=== PATIENT | male | born 1965 | race Caucasian/White ===

== ENCOUNTER → 2016-07-04 | Outpatient (CLI) | payer BC | END | disposition home or self-care (01) | LOC: LAB.O 06-20 12:42 | PROVIDERS: ATTEND Nurse Practitioner Family | DX: I10 Essential (primary) hypertension (principal); B19.9 Unspecified viral hepatitis without hepatic coma; E03.9 Hypothyroidism, unspecified ==

== ENCOUNTER 2018-11-05 22:40 | Emergency (ER) | payer SELFPAY ==
[2018-11-05] MEDS ORDERED: cloNIDine HCL 0.1 MG TAB ONE (23:01)
[2018-11-05] MEDS: cloNIDine HCL 0.1 MG TAB PO ONE (23:02)
[2018-11-05] MEDS: ONDANSETRON INJ 4 MG/2 ML VIAL IV ONE (23:10)
[2018-11-05] MEDS: SODIUM CHLORIDE 0.9% (FLUSH) 10 ML SYG IV PRN (23:14)
--- NOTE | 2018-11-05 23:50 | CT ---
CT HEAD WITHOUT CONTRAST 11/05/2018 CLINICAL HISTORY: Headache COMPARISON: None TECHNIQUE: Axial [address] imaging of the brain. Reformatted coronal and sagittal images obtained. This examination was performed according to our departmental dose optimization program, which includes automated exposure control, adjustment of the mA and/or kV according to patient size and/or use of iterative reconstruction technique. FINDINGS: Asymmetric ventricle size is within normal variability. There is no midline shift. There is no intraparenchymal or extra-axial hemorrhage. There is a 7 mm cystic focus within the superior left frontoparietal periventricular white matter due to remote lacunar infarction. There is no large territorial acute infarct. No hyperdense vessel. No edema seen. Rodriguez-white matter differentiation is maintained. Normal cerebellum and vermis. Fourth ventricle is midline. Prepontine cisterns are not effaced. Normal sella contents. The paranasal sinuses are clear. Mastoid air cells are well aerated. Intraorbital contents appear normal. Intact skull base and calvarium. Normal scalp soft tissues. IMPRESSION: 1. No intracranial acute finding. 2. Remote lacunar infarct within the left periventricular frontal parietal white matter. Electronically signed by: Landy Read DO 11/05/2018 11:49 PM CDT
--- NOTE | 2018-11-06 00:02 | ED.PDOC ---
History of Present Illness - General Chief Complaint: Headache Stated Complaint: headache, nosebleed, N/V Time Seen by Provider: 11/05/18 22:55 - History of Present Illness Initial Comments: Pt came to the ER with headaches for few hours , 7/10 sharp , non radiating associated with some nose bleed which stopped after a while , nausea and vomiting , no fever or chills Improving Factors: nothing Worsening Factors: nothing Associated Symptoms: nausea/vomiting Allergies/Adverse Reactions: Allergies Codeine Allergy (Verified 11/05/18 22:57) Home Medications: Ambulatory Orders Lisinopril & Hydrochlorothiazi [Lisinopril/Hctz 10-12.5 mg] 1 tab PO DAILY #15 tab 11/06/18 Metoprolol Tartrate 25 mg PO BID #30 tab 11/06/18 Naproxen [EC-Naproxen] 500 mg PO BID PRN #14 tab 11/06/18 Ondansetron Odt [Zofran ODT] 4 mg PO TID PRN #12 tab 11/06/18 Review of Systems - Review of Systems Constitutional: States: no symptoms reported EENTM: States: no symptoms reported Respiratory: States: no symptoms reported Cardiology: States: no symptoms reported Gastrointestinal/Abdominal: States: nausea, vomiting Genitourinary: States: no symptoms reported Musculoskeletal: States: no symptoms reported Skin: States: no symptoms reported Neurological: States: headache Endocrine: States: no symptoms reported Hematologic/Lymphatic: States: no symptoms reported All other Systems: Reviewed and Negative Past Medical History (General) - Patient Medical History Hx Seizures: No Hx Stroke: No Hx Dementia: No Hx Asthma: No Hx of COPD: No Hx Cardiac Disorders: No Hx Congestive Heart Failure: No Hx Pacemaker: No Hx Hypertension: Yes - untreated for the past 4 months Hx Thyroid Disease: No Hx Diabetes: No Hx Gastroesophageal Reflux: No Hx Renal Disease: No Hx Cancer: No Hx of HIV: No Hx Hepatitis C: Yes Hx MRSA: No Surgical History: other - Vaccination History Hx Tetanus, Diphtheria Vaccination: No Hx Influenza Vaccination: No - Social History Hx Tobacco Use: Yes - quit 7 yrs ago Hx Alcohol Use: Yes - weekly Family Medical History - Family History Mother Family History: Unknown Physical Exam - Physical Exam General Appearance: Alert, Anxious, Well Developed, Well Groomed, Well Hydrated, Well Nourished Eye Exam: bilateral normal Ears, Nose, Throat: hearing grossly normal, normal ENT inspection, normal pharynx Neck: non-tender, full range of motion, supple Respiratory: chest non-tender, lungs clear, normal breath sounds, no respiratory distress, no accessory muscle use Cardiovascular/Chest: normal peripheral pulses, regular rate, rhythm, no edema Gastrointestinal/Abdominal: non tender, soft Back Exam: normal inspection, no CVA tenderness, no vertebral tenderness Extremity: normal range of motion, non-tender, normal inspection Neurologic: no motor/sensory deficits, alert, normal mood/affect, oriented x 3 Skin Exam: normal color, warm/dry Lymphatic: no adenopathy Progress - Progress Progress: 11/06/18 00:03 11/05/18 22:56 IV Care:Saline Lock per Protoc QSHIFT Telemetry .ONCE Sodium Chloride 0.9% (Flush) [Saline Flush Syringe] 10 ml IV PRN PRN 11/05/18 23:00 EKG STAT Laboratory Results - last 24 hr 11/05/18 11/05/18 22:56 22:56 WBC 7.4 RBC 4.21 L Hgb 14.3 Hct 41.3 L MCV 97.9 H MCH 34.0 H MCHC 34.8 RDW 13.6 Plt Count 163 MPV 10.0 Absolute Neuts (auto) 4.60 Absolute Lymphs (auto) 2.10 Absolute Monos (auto) 0.50 Absolute Eos (auto) 0.20 Absolute Basos (auto) 0.00 Neutrophils % 61.8 Lymphocytes % 27.6 Monocytes % 7.3 Eosinophils % 2.6 Basophils % 0.7 Sodium 140 Potassium 3.3 L Chloride 105 Carbon Dioxide 23 Anion Gap 15.3 BUN 17 Creatinine 0.92 BUN/Creatinine Ratio 18.5 Random Glucose 102 Serum Osmolality 281.1 Calcium 8.6 Total Bilirubin 0.5 AST 55 H ALT 72 H Alkaline Phosphatase 90 Creatine Kinase 146 CK-MB (CK-2) 1.6 CK-MB (CK-2) % Not Reportable Troponin I 0.03 Serum Total Protein 8.5 H Albumin 4.0 Globulin 4.5 H Albumin/Globulin Ratio 0.9 L - EKG/XRAY/CT EKG: no ST T wave changes - L atrial and ventricular hypertrophy CT: Head : Remote Lacunar Infarct Departure - Departure Clinical Impression: Hypertensive urgency Headache Qualifiers: Headache type: unspecified Headache chronicity pattern: acute headache Intractability: intractable Qualified Code(s): R51 - Headache Time of Disposition: 00:07 Disposition: Discharge to Home or Self Care Condition: Good Departure Forms: ED Discharge - Pt. Copy, Patient Portal Self Enrollment Instructions: DI for Headache Diet: resume usual diet Activity: increase activity as tolerated Prescriptions: Lisinopril & Hydrochlorothiazi [Lisinopril/Hctz 10-12.5 mg] 1 tab PO DAILY #15 tab Metoprolol Tartrate 25 mg PO BID #30 tab Naproxen [EC-Naproxen] 500 mg PO BID PRN #14 tab PRN Reason: Pain Ondansetron Odt [Zofran ODT] 4 mg PO TID PRN #12 tab PRN Reason: Nausea/Vomiting Home Medications: Ambulatory Orders Lisinopril & Hydrochlorothiazi [Lisinopril/Hctz 10-12.5 mg] 1 tab PO DAILY #15 tab 11/06/18 Metoprolol Tartrate 25 mg PO BID #30 tab 11/06/18 Naproxen [EC-Naproxen] 500 mg PO BID PRN #14 tab 11/06/18 Ondansetron Odt [Zofran ODT] 4 mg PO TID PRN #12 tab 11/06/18
[2018-11-06] MEDS: KETOROLAC TROMETHAMINE INJ 30 MG/ML VIAL IV ONE (00:03)
[2018-11-06] MEDS ORDERED: METOPROLOL TARTRATE 25 MG TAB ONE (00:46)
[2018-11-06] MEDS ORDERED: LISINOPRIL 10 MG TAB ONE (00:53)
[2018-11-06] MEDS ORDERED: hydroCHLOROthiazide 12.5 MG CAP ONE (01:03)
[2018-11-06] MEDS: LISINOPRIL 10 MG TAB PO ONE (01:07)
[2018-11-06] MEDS: METOPROLOL TARTRATE 25 MG TAB PO ONE (01:07)
[2018-11-06] MEDS: hydroCHLOROthiazide 12.5 MG CAP PO SCH (01:08)
[2018-11-06 01:12] VITALS: BP 178/118; O2SAT 96
[2018-11-06 01:30] VITALS: TEMP 98.1
== END 2018-11-06 01:30 | disposition home or self-care (01) ==
LOC: ER 22:40
DX: I16.0 Hypertensive urgency (principal); R51 Headache; R11.2 Nausea with vomiting, unspecified; R04.0 Epistaxis; I51.7 Cardiomegaly; Z86.19 Personal history of other infectious and parasitic diseases; Z87.891 Personal history of nicotine dependence; Z79.899 Other long term (current) drug therapy; Z88.5 Allergy status to narcotic agent
CPT/HCPCS: 70450; 80053; 82550; 82553; 84484; 85025; 93005; J1885; J2405

== ENCOUNTER 2019-02-22 09:38 | Emergency (ER) | payer OTHER ==
[2019-02-22 09:48] VITALS: TEMP 97.6
[2019-02-22] MEDS ORDERED: KETOROLAC TROMETHAMINE INJ 30 MG/ML VIAL IM ONE (09:54)
[2019-02-22] MEDS ORDERED: HYDROcodone 7.5MG/APAP 325MG 1 EA TAB PO ONE (09:54)
--- NOTE | 2019-02-22 10:31 | CT ---
EXAM DESCRIPTION: Lumbar Spine CLINICAL HISTORY: acute pain lumbar, more to rt at work COMPARISON: None Available. TECHNIQUE: Transaxial images were obtained without intravenous contrast media. Sagittal and coronal reconstruction was performed. This exam was performed according to our departmental dose-optimization program, which includes automated exposure control, adjustment of the mA and/or kV according to patient size and/or use of iterative reconstruction technique. FINDINGS: There is good alignment of the lumbar spine. There is no vertebral pathology. A 2.2 mm nonobstructing right renal calculus is observed. Tiny left-sided stones are also noted. T12-L1: Unremarkable. L1-2: Unremarkable. L2-3: Unremarkable. Facet joint arthritis is observed. L3-4: Unremarkable. L4-5: Unremarkable. L5-S1: Unremarkable. IMPRESSION: No significant compromise of the lumbar subarachnoid space or exiting nerve roots is detected. Electronically signed by: Mansoor Campbell MD 02/22/2019 10:29 AM INTERNET [employer]IST
--- NOTE | 2019-02-22 10:39 | ED.PDOC ---
History of Present Illness - General Chief Complaint: Back Pain or Injury Stated Complaint: R low back pain Time Seen by Provider: 02/22/19 09:53 Source: patient Exam Limitations: no limitations - History of Present Illness Initial Comments: The patient is a 53-year-old male presenting to the emergency room secondary to work injury. He was apparently bending over pulling on something when he felt a pop in his right low back. He does have a little bit of intermittent sciatica along with muscle spasms in his low back. It is not on the left it is midline and more to the right. No obvious step-off. No obvious bruising. Pain is down around the L5 area. Again there is obvious muscle spasm.no other injury is obvious. Timing/Duration: 1 hour Severity: severe Improving Factors: immobilization Worsening Factors: movement Associated Symptoms: denies symptoms Allergies/Adverse Reactions: Allergies Codeine Allergy (Verified 02/22/19 09:52) Home Medications: Ambulatory Orders Lisinopril & Hydrochlorothiazi [Lisinopril/Hctz 10-12.5 mg] 1 tab PO DAILY #15 tab 11/06/18 Metoprolol Tartrate 25 mg PO BID #30 tab 11/06/18 Naproxen [EC-Naproxen] 500 mg PO BID PRN #14 tab 11/06/18 Ondansetron Odt [Zofran ODT] 4 mg PO TID PRN #12 tab 11/06/18 Cyclobenzaprine HCl [Flexeril] 10 mg PO TID PRN #20 tab 02/22/19 Tramadol HCl 50 mg PO Q8HR PRN #30 tab 02/22/19 predniSONE [Prednisone] 20 mg PO DAILY #7 tab 02/22/19 Review of Systems - Review of Systems Constitutional: States: no symptoms reported EENTM: States: no symptoms reported Respiratory: States: no symptoms reported Cardiology: States: no symptoms reported Gastrointestinal/Abdominal: States: no symptoms reported Genitourinary: States: no symptoms reported Musculoskeletal: States: back pain Skin: States: no symptoms reported Neurological: States: see HPI Endocrine: States: no symptoms reported All other Systems: No Change from Baseline Past Medical History (General) - Patient Medical History Hx Seizures: No Hx Stroke: No Hx Dementia: No Hx Asthma: Yes Hx of COPD: No Hx Cardiac Disorders: No Hx Congestive Heart Failure: No Hx Pacemaker: No Hx Hypertension: Yes Hx Thyroid Disease: No Hx Diabetes: No Hx Gastroesophageal Reflux: No Hx Renal Disease: No Hx Cancer: No Hx of HIV: No Hx Hepatitis C: Yes Hx MRSA: No Surgical History: other - Vaccination History Hx Tetanus, Diphtheria Vaccination: No Hx Influenza Vaccination: No Hx Pneumococcal Vaccination: No - Social History Hx Tobacco Use: No Hx Alcohol Use: Yes Family Medical History - Family History Mother Family History: Unknown Physical Exam - Physical Exam General Appearance: Alert, Obvious distress Eye Exam: bilateral normal Ears, Nose, Throat: hearing grossly normal, normal ENT inspection Neck: full range of motion, supple Respiratory: lungs clear, normal breath sounds, no respiratory distress, no accessory muscle use Cardiovascular/Chest: normal peripheral pulses, regular rate, rhythm, no edema Peripheral Pulses: radial,right: 2+, radial,left: 2+ Gastrointestinal/Abdominal: non tender, soft Rectal Exam: deferred Back Exam: no vertebral tenderness, CVA tenderness (R) - low 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 Worker's Comp. urinalysis is being sent off. The patient is going to be placed on prednisone, Flexeril and tramadol for as needed use. He does need to do stretching exercises for his low back. Topical heat in the form of a heat pad, icy hot or Biofreeze may also prove beneficial. He should expect to have some pain for the next 2-3 weeks. He should expect to be off work for at least the next week. He is having some mild sciatica related to the muscle spasm. He should follow back up with his primary care doctor in a week to 10 days for reevaluation. [id number] anti-inflammatory such as Motrin or Aleve may also prove useful. ER warnings were given. chriss galaviz [id number] - Results/Orders Results/Orders: CT scan of lumbar spine fails to show acute pathology. No significant changes in alignment. No obvious impingement areas. No fracture. Departure - Departure Clinical Impression: Acute myofascial strain of lumbar region Qualifiers: Encounter type: initial encounter Qualified Code(s): S39.012A - Strain of muscle, fascia and tendon of lower back, initial encounter Disposition: Discharge to Home or Self Care Condition: Fair Departure Forms: ED Discharge - Pt. Copy, Patient Portal Self Enrollment Instructions: DI for Back Pain With Sciatica Diet: regular diet Activity: other Prescriptions: Tramadol HCl 50 mg PO Q8HR PRN #30 tab PRN Reason: Moderate Pain Cyclobenzaprine HCl [Flexeril] 10 mg PO TID PRN #20 tab PRN Reason: Muscle Spasms predniSONE [Prednisone] 20 mg PO DAILY #7 tab Home Medications: Ambulatory Orders Lisinopril & Hydrochlorothiazi [Lisinopril/Hctz 10-12.5 mg] 1 tab PO DAILY #15 tab 11/06/18 Metoprolol Tartrate 25 mg PO BID #30 tab 11/06/18 Naproxen [EC-Naproxen] 500 mg PO BID PRN #14 tab 11/06/18 Ondansetron Odt [Zofran ODT] 4 mg PO TID PRN #12 tab 11/06/18 Cyclobenzaprine HCl [Flexeril] 10 mg PO TID PRN #20 tab 02/22/19 Tramadol HCl 50 mg PO Q8HR PRN #30 tab 02/22/19 predniSONE [Prednisone] 20 mg PO DAILY #7 tab 02/22/19 Additional Instructions: the patient is a 53-year-old male presenting to the emergency room secondary to right-sided lumbar myofascial strain that occurred during work today. Worker's Comp. urinalysis is being sent off. The patient is going to be placed on prednisone, Flexeril and tramadol for as needed use. He does need to do stretching exercises for his low back. Topical heat in the form of a heat pad, icy hot or Biofreeze may also prove beneficial. He should expect to have some pain for the next 2-3 weeks. He should expect to be off work for at least the next week. He is having some mild sciatica related to the muscle spasm. He should follow back up with his primary care doctor in a week to 10 days for reevaluation. [id number] anti-inflammatory such as Motrin or Aleve may also prove useful. ER warnings were given.
[2019-02-22 11:04] VITALS: BP 182/122
[2019-02-22 11:06] VITALS: O2SAT 97
== END 2019-02-22 11:06 | disposition home or self-care (01) ==
LOC: ER 09:38
DX: S39.012A Strain of muscle, fascia and tendon of lower back, initial encounter (principal); J45.909 Unspecified asthma, uncomplicated; I10 Essential (primary) hypertension; Z86.19 Personal history of other infectious and parasitic diseases; Z79.899 Other long term (current) drug therapy; Z88.5 Allergy status to narcotic agent; X50.9XXA Other and unspecified overexertion or strenuous movements or postures, initial encounter; Y99.0 Civilian activity done for income or pay; Y92.69 Other specified industrial and construction area as the place of occurrence of the external cause
CPT/HCPCS: 72131; J1885

== ENCOUNTER → 2019-03-15 | Outpatient (CLI) | payer OTHER ==
--- NOTE | 2019-03-15 16:11 | MRI ---
EXAM DESCRIPTION: Lumbar Spine w/o Contrast CLINICAL HISTORY: RADICULOPATHY LUMBAR REGION COMPARISON: CT of the lumbar spine February 22, 2019 TECHNIQUE: MRI of the lumbar spine is performed according to our usual protocol with axial and sagittal multi sequence imaging. FINDINGS: Sagittal T2 images reveal decreased signal intensity consistent with early desiccation of the intervertebral disc at L4-5. Small hemangioma in vertebral body L2. Posterior annular bulges are not a prominent finding. No prevertebral mass or aneurysm. Lower cord and conus appear normal. Tip of the conus is behind upper L2. Sagittal T1 images reveal benign marrow signal characteristics. Normal T1 signal intensity and appearance of the lower cord and conus. Sagittal STIR images are negative for marrow edema within the vertebral bodies or posterior elements. No paraspinous fluid collection or cystic lesion. Axial T1 and T2-weighted images were obtained to evaluate the disc levels. T12-L1: No posterior annular bulge or herniation. No spinal stenosis or neural foraminal narrowing. Facets appear normal. Normal appearance of the lower cord and conus. L1-2: No posterior annular bulge or herniation. No spinal stenosis or neural foraminal narrowing. Facets appear normal. L2-3: No posterior annular bulge or herniation. No spinal stenosis or neural foraminal narrowing. Facets appear normal. L3-4: No posterior annular bulge is seen but there is bilateral far lateral bulging with mild marginal osteophyte formation mildly narrowing the neural foramina. No spinal stenosis or lateral recess compromise. Facets appear mildly hypertrophic. L4-5: Mild diffuse posterior annular bulge with slight left posterolateral accentuation mildly narrowing the left neural foramen. No spinal stenosis or lateral recess compromise. And mild facet hypertrophy with mildly increased fluid in the facet joints. L5-S1: No posterior annular bulge or herniation. No spinal stenosis or neural foraminal narrowing. Facets appear normal. Sacrum appears intact. No retroperitoneal mass. Mildly ectatic infrarenal abdominal aorta measures up to 2.5 cm in diameter. The aorta above this level measures 2.2 cm and therefore this does not constitute a true aneurysm. No imaging follow-up is required. Reference: J Am Renan Radiol 2013;10:789-794. Left renal cyst is incidentally noted. IMPRESSION: Negative for spinal stenosis or acute appearing disc herniation. Mild neural foraminal narrowing at levels noted above. Electronically signed by: Alex Yarbrough MD 03/15/2019 4:09 PM [facility]
== END ==
LOC: MRI 12:52
PROVIDERS: ATTEND Emergency Medicine
DX: M54.16 Radiculopathy, lumbar region (principal)

== ENCOUNTER 2019-05-08 | Emergency (ER) | payer SELFPAY | END 2019-05-08 13:32 | disposition home or self-care (01) | CPT/HCPCS: 71045; 94640; J0696; J1030; J7620 ==

== ENCOUNTER 2019-07-30 16:12 | Emergency (ER) | payer SELFPAY ==
[2019-07-30] MEDS ORDERED: SODIUM CHLORIDE 0.9% (FLUSH) 10 ML SYG IV PRN (16:16)
[2019-07-30] MEDS ORDERED: SODIUM CHLORIDE 0.9% 1000ML 1,000 ML IVS ONE (16:17)
--- NOTE | 2019-07-30 16:18 | ED.PDOC ---
History of Present Illness - General Time Seen by Provider: 07/30/19 16:15 Source: patient - History of Present Illness Initial Comments: 53 yo male with PMH of HTN, asthma, hepatitis C, alcohol abuse, history of CVA who presents with cc of near syncope which occurred about 1 hour ago. Patient states he was with his daughter for a doctor visit for her and was sitting down when he suddenly became lightheaded and profusely sweating all over. He felt l desi he may pass out at any second. His family brought him home and he stayed inside and the AC and lie down and symptoms resolved after about 1 hour. Symptoms worsened with exertion and little improvement with rest, no medications taken for relief. He reports approximately 5 similar previous episodes, the last being about 2 weeks ago. Reports he usually has brief LOC with the episodes. His PCP is Dr. Boni Farmer who has been doing some outpatient work-up, but so far apparently most of the tests have been unremarkable. Patient reports also episodic headaches to the bilateral methodist regions for the past couple of days which are new. Denies any chest pain, dyspnea, palpitations, fevers, chills, sore throat, abdominal pain, urinary symptoms, leg swelling. Patient does admit to heavy daily alcohol use-states he drinks about a sixpack of beer and 1/2 pint of whiskey every day, last drink was just prior to arrival. Allergies/Adverse Reactions: Allergies Codeine Allergy (Verified 07/30/19 16:34) Home Medications: Ambulatory Orders RX: Lisinopril & Hydrochlorothiazi [Lisinopril/Hctz 10-12.5 mg] 1 tab PO DAILY #15 tab 11/06/18 RX: Metoprolol Tartrate 25 mg PO BID #30 tab 11/06/18 Ciprofloxacin HCl [Cipro] 500 mg PO BID 10 Days #28 tab 07/30/19 Review of Systems - Review of Systems Review of Systems: 07/30/19 17:07 as per HPI All other Systems: Reviewed and Negative Past Medical History (General) - Patient Medical History Hx Seizures: No Hx Stroke: No Hx Dementia: No Hx Asthma: Yes Hx of COPD: No Hx Cardiac Disorders: No Hx Congestive Heart Failure: No Hx Pacemaker: No Hx Hypertension: Yes Hx Thyroid Disease: No Hx Diabetes: No Hx Gastroesophageal Reflux: No Hx Renal Disease: No Hx Cancer: No Hx of HIV: No Hx Hepatitis C: Yes Hx MRSA: No - Vaccination History Hx Tetanus, Diphtheria Vaccination: No Hx Influenza Vaccination: No Hx Pneumococcal Vaccination: No - Social History Hx Tobacco Use: Yes Hx Alcohol Use: Yes - regularly, A pint of whiskey a day and a sixpack of beer Hx Substance Use: No Hx Substance Use Treatment: No Hx Depression: No Family Medical History - Family History Mother Family History: Unknown Physical Exam - Physical Exam General Appearance: Alert, Comfortable, No apparent distress Eye Exam: bilateral normal Ears, Nose, Throat: hearing grossly normal, normal ENT inspection, normal pharynx Neck: non-tender, full range of motion, supple, normal inspection Respiratory: chest non-tender, lungs clear, normal breath sounds, no respiratory distress, no accessory muscle use Cardiovascular/Chest: normal peripheral pulses, no edema, no gallop, no JVD, no murmur, tachycardia Peripheral Pulses: radial,right: 2+, radial,left: 2+ Gastrointestinal/Abdominal: non tender, soft, no organomegaly Back Exam: normal inspection, no CVA tenderness, no vertebral tenderness Extremity: normal range of motion, non-tender, normal inspection, no pedal edema, no calf tenderness 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 -UA revealed small number of WBCs and positive nitrites. WBC is slightly elevated to 11,800 with slight left shift. Also notable of Na 129, BUN 19, Cr 1.42 - suspect due to moderate dehydration and alcohol abuse. D-dimer <500. -Patient now discloses that he has had some issues with urinary retention and dark-colored urination recently. Discussed that he may be developing some prostate enlargement. Cannot rule out prostate abscess. Will treat for UTI and have patient follow-up closely with PCP in the next 1 to 2 weeks. Cipro 500 mg p.o. twice daily. -DC to home in good condition, return warnings discussed. Maxim Annad MD Billing #[id number] 07/30/19 16:16 IV Care:Saline Lock per Protoc QSHIFT Telemetry .ONCE Sodium Chloride 0.9% (Flush) [Saline Flush Syringe] 10 ml IV PRN PRN 07/30/19 16:30 EKG STAT 07/31/19 09:00 Pulse Ox Daily Laboratory Results - last 24 hr 07/30/19 07/30/19 07/30/19 16:35 16:35 16:38 WBC 11.8 H RBC 3.75 L Hgb 14.1 Hct 41.2 L MCV 109.7 H MCH 37.4 H MCHC 34.1 RDW 15.0 H Plt Count 250 MPV 8.5 Absolute Neuts (auto) 9.10 H Absolute Lymphs (auto) 1.90 Absolute Monos (auto) 0.80 Absolute Eos (auto) 0.10 Absolute Basos (auto) 0.00 Neutrophils % 77.2 Lymphocytes % 15.7 L Monocytes % 6.3 Eosinophils % 0.4 L Basophils % 0.4 D-Dimer, Quantitative 451 H Sodium Potassium Chloride Carbon Dioxide Anion Gap BUN Creatinine BUN/Creatinine Ratio Random Glucose Serum Osmolality Calcium Troponin I B-Natriuretic Peptide TSH 7.54 H Urine Color Urine Appearance Urine pH Ur Specific [place] Urine Protein Urine Glucose (UA) Urine Ketones Urine Blood Urine Nitrite Urine Bilirubin Urine Urobilinogen Ur Leukocyte Esterase Urine RBC Urine WBC Ur Epithelial Cells Amorphous Sediment Urine Bacteria Hyaline Casts Urine Mucus 07/30/19 07/30/19 07/30/19 16:38 16:38 16:38 WBC RBC Hgb Hct MCV MCH MCHC RDW Plt Count MPV Absolute Neuts (auto) Absolute Lymphs (auto) Absolute Monos (auto) Absolute Eos (auto) Absolute Basos (auto) Neutrophils % Lymphocytes % Monocytes % Eosinophils % Basophils % D-Dimer, Quantitative Sodium 129 L Potassium 3.7 Chloride 95 L Carbon Dioxide 23 Anion Gap 14.7 BUN 19 H Creatinine 1.42 H BUN/Creatinine Ratio 13.4 Random Glucose 119 H Serum Osmolality 262.3 L Calcium 8.4 Troponin I < 0.02 B-Natriuretic Peptide 98.1 TSH Urine Color Urine Appearance Urine pH Ur Specific [place] Urine Protein Urine Glucose (UA) Urine Ketones Urine Blood Urine Nitrite Urine Bilirubin Urine Urobilinogen Ur Leukocyte Esterase Urine RBC Urine WBC Ur Epithelial Cells Amorphous Sediment Urine Bacteria Hyaline Casts Urine Mucus 07/30/19 18:00 WBC RBC Hgb Hct MCV MCH MCHC RDW Plt Count MPV Absolute Neuts (auto) Absolute Lymphs (auto) Absolute Monos (auto) Absolute Eos (auto) Absolute Basos (auto) Neutrophils % Lymphocytes % Monocytes % Eosinophils % Basophils % D-Dimer, Quantitative Sodium Potassium Chloride Carbon Dioxide Anion Gap BUN Creatinine BUN/Creatinine Ratio Random Glucose Serum Osmolality Calcium Troponin I B-Natriuretic Peptide TSH Urine Color Dk yellow Urine Appearance Cloudy Urine pH 7.0 Ur Specific [place] 1.020 Urine Protein 30 Urine Glucose (UA) Negative Urine Ketones 15 H Urine Blood Negative Urine Nitrite Positive H Urine Bilirubin Moderate Urine Urobilinogen >= 8.0 H Ur Leukocyte Esterase Negative Urine RBC 0-1 Urine WBC 0-1 Ur Epithelial Cells 1-3 Amorphous Sediment 1+ Urine Bacteria Rare Hyaline Casts 0-1 Urine Mucus Large - EKG/XRAY/CT EKG: Sinus, Tachy - Heart rate 100, no ST elevations, no Q waves, left axis deviation, intervals normal, compared to 11/05/2018 EKG sinus tachycardia appears new XRAY: chest - Mild bilateral perihilar fullness noted, likely indicative of viral upper respiratory infection versus mild vascular congestion. Departure - Departure Clinical Impression: Near syncope UTI (urinary tract infection) Qualifiers: Urinary tract infection type: acute cystitis Hematuria presence: without hematuria Qualified Code(s): N30.00 - Acute cystitis without hematuria Time of Disposition: 18:45 Disposition: Discharge to Home or Self Care Condition: Good Departure Forms: ED Discharge - Pt. Copy, Patient Portal Self Enrollment Instructions: DI for Syncope in Adults (Fainting), Urinary Tract Infection, Adult (DC) Diet: resume usual diet Activity: increase activity as tolerated Referrals: BONI FARMER [Primary Care Provider] - 1-2 Weeks Prescriptions: Ciprofloxacin HCl [Cipro] 500 mg PO BID 10 Days #28 tab Home Medications: Ambulatory Orders RX: Lisinopril & Hydrochlorothiazi [Lisinopril/Hctz 10-12.5 mg] 1 tab PO DAILY #15 tab 11/06/18 RX: Metoprolol Tartrate 25 mg PO BID #30 tab 11/06/18 Ciprofloxacin HCl [Cipro] 500 mg PO BID 10 Days #28 tab 07/30/19 Additional Instructions: Remain well-hydrated and advance her diet and activity level as tolerated. Take the antibiotics as prescribed and finish the full course. Follow-up with your primary care doctor in the next 1 to 2 weeks for further outpatient evaluation. Return to the ED if you develop any symptoms such as chest pain, shortness of breath, abdominal pain, heart racing, etc.
--- NOTE | 2019-07-30 16:49 | RAD ---
EXAM DESCRIPTION: Chest,1 View CLINICAL HISTORY: 53 years Male, dizziness COMPARISON: 05/08/2019 TECHNIQUE: Single view radiograph of the chest. IMPRESSION: Normal size cardiac silhouette. Mild bilateral perihilar fullness which may represent underlying vascular congestion or bronchitis. Unchanged from 05/08/2019. No lobar consolidation otherwise observed. Scattered bibasilar atelectasis and/or scarring. No pleural effusion or pneumothorax. Thoracic spondylosis with slight dextrocurvature of the upper to midthoracic spine as before. Chronic changes to the distal right clavicle. Electronically signed by: Thiago Leach MD 07/30/2019 4:47 PM CDT
[2019-07-30 18:25] VITALS: BP 120/90
[2019-07-30 18:56] VITALS: TEMP 98; O2SAT 94
== END 2019-07-30 18:55 | disposition home or self-care (01) ==
LOC: ER 16:12
DX: R55 Syncope and collapse (principal); N30.00 Acute cystitis without hematuria; R00.0 Tachycardia, unspecified; I10 Essential (primary) hypertension; B19.20 Unspecified viral hepatitis C without hepatic coma; Z87.891 Personal history of nicotine dependence; Z86.73 Personal history of transient ischemic attack (TIA), and cerebral infarction without residual deficits; Z79.899 Other long term (current) drug therapy
CPT/HCPCS: 36415; 71045; 80048; 81001; 83880; 84443; 84484; 85025; 85379; 93005; J7030

== ENCOUNTER 2019-10-12 17:42 | Emergency (ER) | payer SELFPAY ==
[2019-10-12] MEDS ORDERED: SODIUM CHLORIDE 0.9% (FLUSH) 10 ML SYG IV PRN (18:01)
[2019-10-12] MEDS ORDERED: THIAMINE HCL IVS ONE (18:03)
[2019-10-12] MEDS ORDERED: MULTIPLE VITAMIN IVS ONE (18:03)
[2019-10-12] MEDS ORDERED: [UNRECOGNIZED DRUG - OTHER] IVS ONE (18:03)
[2019-10-12] MEDS ORDERED: FOLIC ACID IVS ONE (18:03)
[2019-10-12] MEDS ORDERED: THIAMINE HCL INJ 100 MG/ML VIAL ONE (18:10)
[2019-10-12] MEDS ORDERED: SODIUM CHLORIDE 0.9% 1000ML 1,000 ML ONE (18:10)
[2019-10-12] MEDS ORDERED: FOLIC ACID INJ 5 MG/ML VIAL ONE (18:10)
[2019-10-12] MEDS ORDERED: MULTIPLE VITAMIN 10 ML VIAL ONE (18:14)
[2019-10-12 18:22] VITALS: TEMP 98.2; O2SAT 97
[2019-10-12 18:56] VITALS: BP 136/97
--- NOTE | 2019-10-12 19:48 | ED.PDOC ---
History of Present Illness - General Chief Complaint: Behavioral / Psych Stated Complaint: "I want to kill myself" Time Seen by Provider: 10/12/19 18:00 Source: patient, RN notes reviewed, Vital Signs reviewed Exam Limitations: no limitations - History of Present Illness Initial Comments: Patient is a 53-year-old white male who presents with suicidal ideation and wanting to detox off alcohol. Patient was at a hospital in [place] today seeking help for his alcohol problem and he left when they would not given the help he needed. Patient denies any problems at this time other than being suicidal and needing help quitting alcohol. Patient does not have a plan around his committing suicide. He states he is depressed. Timing/Duration: 1 week Severity: moderate Improving Factors: nothing Worsening Factors: other - Drinking alcohol Associated Symptoms: chest pain, malaise, weakness Allergies/Adverse Reactions: Allergies Codeine Allergy (Verified 10/12/19 18:22) Home Medications: Ambulatory Orders Lisinopril & Hydrochlorothiazi [Lisinopril/Hctz 10-12.5 mg] 1 tab PO DAILY #15 tab 11/06/18 Metoprolol Tartrate 25 mg PO BID #30 tab 11/06/18 Ciprofloxacin HCl [Cipro] 500 mg PO BID 10 Days #28 tab 07/30/19 Review of Systems - Review of Systems Constitutional: States: see HPI, weakness. Denies: chills, fever, malaise EENTM: States: no symptoms reported. Denies: eye pain, blurred vision, double vision Respiratory: States: no symptoms reported. Denies: cough, orthopnea, short of breath, stridor, wheezing Cardiology: States: see HPI, chest pain. Denies: palpitations, syncope Gastrointestinal/Abdominal: States: no symptoms reported. Denies: abdominal pain, diarrhea, nausea, vomiting Genitourinary: States: no symptoms reported Musculoskeletal: Denies: no symptoms reported, back pain, joint pain, neck pain Skin: States: no symptoms reported. Denies: change in color, rash Neurological: States: see HPI, anxiety, depressed, weakness. Denies: tremors Endocrine: Denies: no symptoms reported Hematologic/Lymphatic: Denies: no symptoms reported All other Systems: No Change from Baseline Past Medical History (General) - Patient Medical History Hx Seizures: No Hx Stroke: Yes Hx Dementia: No Hx Asthma: Yes Hx of COPD: No Hx Cardiac Disorders: No Hx Congestive Heart Failure: No Hx Pacemaker: No Hx Hypertension: Yes Hx Thyroid Disease: No Hx Diabetes: No Hx Gastroesophageal Reflux: No Hx Renal Disease: No Hx Cancer: No Hx of HIV: No Hx Hepatitis C: Yes Hx MRSA: No Surgical History: other - Vaccination History Hx Tetanus, Diphtheria Vaccination: No Hx Influenza Vaccination: No Hx Pneumococcal Vaccination: No - Social History Hx Tobacco Use: Yes Hx Alcohol Use: Yes Hx Substance Use: Yes Hx Substance Use Treatment: No Hx Depression: Yes - Female History Patient is a Female of Child Bearing Age (10 -59 yrs old): No Patient : No Family Medical History - Family History Mother Family History: Unknown Physical Exam - Physical Exam General Appearance: Alert, Anxious, Obvious distress, Restless, Well Developed, Well Hydrated, Well Nourished Eye Exam: bilateral normal Ears, Nose, Throat: hearing grossly normal, normal ENT inspection, normal pharynx Neck: non-tender, full range of motion, supple, normal inspection Respiratory: chest non-tender, lungs clear, normal breath sounds, no respiratory distress, no accessory muscle use Cardiovascular/Chest: normal peripheral pulses, no edema, no gallop, no murmur, tachycardia Peripheral Pulses: radial,right: 2+, radial,left: 2+ Gastrointestinal/Abdominal: normal bowel sounds, non tender, soft Back Exam: normal inspection, no CVA tenderness, no vertebral tenderness Extremity: normal range of motion, non-tender, normal inspection 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 10/12/19 19:51 Nursing staff was in the process of contacting [facility] for evaluation of his suicidal ideation and inpatient rehab when the patient eloped with his IV in place. PD has been called and we await patient's return. Danny Alfred M.D. #[id number] 10/12/19 19:58 EKG performed 12 October 2027 1814 hrs.: Sinus tachycardia at 110 bpm, left atrial enlargement, incomplete right bundle branch, left anterior fascicular block, T wave inversions laterally concerning for ischemia, abnormal EKG. No comparison EKG available at this time. - Results/Orders Results/Orders: 10/12/19 18:01 Telemetry Q4H URINE DRUG SCREEN, 7 ASSAY Stat Sodium Chloride 0.9% (Flush) [Saline Flush Syringe] 10 ml IV PRN PRN 10/12/19 18:15 EKG STAT 10/12/19 19:47 URINALYSIS Stat Laboratory Results - last 24 hr 10/12/19 10/12/19 10/12/19 18:10 18:10 18:10 WBC 9.3 RBC 3.57 L Hgb 13.1 L Hct 37.5 L MCV 104.9 H MCH 36.7 H MCHC 35.0 RDW 14.2 Plt Count 262 MPV 7.8 Absolute Neuts (auto) 4.80 Absolute Lymphs (auto) 3.60 H Absolute Monos (auto) 0.80 Absolute Eos (auto) 0.00 Absolute Basos (auto) 0.10 Neutrophils % 51.4 Lymphocytes % 39.0 Monocytes % 8.3 Eosinophils % 0.3 L Basophils % 1.0 PT 11.3 H INR 1.14 PTT (SP) 25.2 Sodium 143 Potassium 3.0 L Chloride 107 Carbon Dioxide 24 Anion Gap 15.0 BUN 9 Creatinine 0.65 BUN/Creatinine Ratio 13.8 Random Glucose 102 Serum Osmolality 283.9 Calcium 8.4 Total Bilirubin 1.0 AST 105 H ALT 36 Alkaline Phosphatase 93 Serum Total Protein 8.9 H Albumin 3.1 L Globulin 5.8 H Albumin/Globulin Ratio 0.5 L Salicylates < 4.0 Acetaminophen < 10.0 L Ethyl Alcohol 10/12/19 18:10 WBC RBC Hgb Hct MCV MCH MCHC RDW Plt Count MPV Absolute Neuts (auto) Absolute Lymphs (auto) Absolute Monos (auto) Absolute Eos (auto) Absolute Basos (auto) Neutrophils % Lymphocytes % Monocytes % Eosinophils % Basophils % PT INR PTT (SP) Sodium Potassium Chloride Carbon Dioxide Anion Gap BUN Creatinine BUN/Creatinine Ratio Random Glucose Serum Osmolality Calcium Total Bilirubin AST ALT Alkaline Phosphatase Serum Total Protein Albumin Globulin Albumin/Globulin Ratio Salicylates Acetaminophen Ethyl Alcohol 317.60 H* Vital Signs 10/12/19 10/12/19 10/12/19 17:45 18:01 18:43 Temperature 98.2 F Pulse Rate [ 123 H 123 H 80 Pulse ox] Respiratory 16 16 14 Rate Blood Pressure 147/95 136/97 [R arm] O2 Sat by Pulse 97 97 Oximetry Departure - Departure Clinical Impression: Suicidal ideation Depression Qualifiers: Depression Type: unspecified Qualified Code(s): F32.9 - Major depressive disorder, single episode, unspecified Alcohol intoxication Qualifiers: Complication of substance-induced condition: uncomplicated Qualified Code(s): F10.920 - Alcohol use, unspecified with intoxication, uncomplicated Time of Disposition: 20:00 Disposition: Left Against Medical Advice Condition: Fair Departure Forms: ED Discharge - Pt. Copy, Patient Portal Self Enrollment Referrals: RAYMUNDO JASSO [Primary Care Provider] - 1-2 Weeks Home Medications: Ambulatory Orders Lisinopril & Hydrochlorothiazi [Lisinopril/Hctz 10-12.5 mg] 1 tab PO DAILY #15 tab 11/06/18 Metoprolol Tartrate 25 mg PO BID #30 tab 11/06/18 Ciprofloxacin HCl [Cipro] 500 mg PO BID 10 Days #28 tab 07/30/19
== END 2019-10-12 19:40 | disposition left against medical advice (07) ==
LOC: ER 17:42
DX: R45.851 Suicidal ideations (principal); F32.9 Major depressive disorder, single episode, unspecified; F10.129 Alcohol abuse with intoxication, unspecified; I45.2 Bifascicular block; R00.0 Tachycardia, unspecified; R07.9 Chest pain, unspecified; R53.1 Weakness; J45.909 Unspecified asthma, uncomplicated; I10 Essential (primary) hypertension; Z53.29 Procedure and treatment not carried out because of patient's decision for other reasons; Z86.19 Personal history of other infectious and parasitic diseases; Z87.891 Personal history of nicotine dependence; Z79.899 Other long term (current) drug therapy; Z88.5 Allergy status to narcotic agent
CPT/HCPCS: 36415; 80053; 80307; 80320; 80329; 81001; 85025; 85610; 85730; 93005; J2060; J3411; J7030

== ENCOUNTER 2019-10-12 20:06 | Emergency (ER) | payer SELFPAY ==
--- NOTE | 2019-10-12 21:44 | ED.PDOC ---
History of Present Illness - General Chief Complaint: Behavioral / Psych Stated Complaint: I want to kill myself and I want to quit drinking Time Seen by Provider: 10/12/19 21:07 Source: patient, RN notes reviewed, Vital Signs reviewed Exam Limitations: no limitations - History of Present Illness Initial Comments: Patient is a 53-year-old white male who presents with suicidal ideation and acute alcohol intoxication. Patient was fully evaluated earlier in the evening and we were attempting placement when he eloped. Please see other chart for additional details. Timing/Duration: 4-6 hours Severity: severe Improving Factors: nothing Worsening Factors: other - alcohol Associated Symptoms: chest pain, malaise, weakness Allergies/Adverse Reactions: Allergies Codeine Allergy (Verified 10/12/19 18:22) Home Medications: Ambulatory Orders Lisinopril & Hydrochlorothiazi [Lisinopril/Hctz 10-12.5 mg] 1 tab PO DAILY #15 tab 11/06/18 Metoprolol Tartrate 25 mg PO BID #30 tab 11/06/18 Ciprofloxacin HCl [Cipro] 500 mg PO BID 10 Days #28 tab 07/30/19 Review of Systems - Review of Systems Constitutional: States: see HPI, malaise, weakness. Denies: chills, fever EENTM: States: no symptoms reported. Denies: eye pain, blurred vision, double vision Respiratory: States: see HPI, cough. Denies: short of breath, stridor, wheezing Cardiology: States: see HPI, chest pain - Chest pain is intermittent, nonradiating, mid chest, worse with movement.. Denies: palpitations, syncope Gastrointestinal/Abdominal: States: no symptoms reported. Denies: abdominal pain, diarrhea, nausea, vomiting Genitourinary: States: no symptoms reported Musculoskeletal: States: no symptoms reported Skin: States: no symptoms reported. Denies: change in color, rash Neurological: States: see HPI, depressed, weakness. Denies: headache, tingling, tremors Endocrine: States: no symptoms reported Hematologic/Lymphatic: States: no symptoms reported All other Systems: No Change from Baseline Past Medical History (General) - Patient Medical History Hx Seizures: No Hx Stroke: Yes Hx Dementia: No Hx Asthma: Yes Hx of COPD: No Hx Cardiac Disorders: No Hx Congestive Heart Failure: No Hx Pacemaker: No Hx Hypertension: Yes Hx Thyroid Disease: No Hx Diabetes: No Hx Gastroesophageal Reflux: No Hx Renal Disease: No Hx Cancer: No Hx of HIV: No Hx Hepatitis C: Yes Hx MRSA: No - Vaccination History Hx Tetanus, Diphtheria Vaccination: No Hx Influenza Vaccination: No Hx Pneumococcal Vaccination: No - Social History Hx Tobacco Use: Yes Hx Alcohol Use: Yes Hx Substance Use: Yes Hx Substance Use Treatment: No Hx Depression: Yes - Female History Patient : No Family Medical History - Family History Mother Family History: Unknown Physical Exam - Physical Exam General Appearance: Alert, Anxious, Well Developed, Well Groomed, Well Hydrated, Well Nourished Eye Exam: bilateral normal Ears, Nose, Throat: hearing grossly normal, normal ENT inspection, normal pharynx Neck: non-tender, full range of motion, supple Respiratory: chest non-tender, lungs clear, normal breath sounds, no respiratory distress, no accessory muscle use Cardiovascular/Chest: normal peripheral pulses, no edema, no murmur, tachycardia Peripheral Pulses: radial,right: 2+, radial,left: 2+ Gastrointestinal/Abdominal: normal bowel sounds, non tender, soft Back Exam: normal inspection, no CVA tenderness, no vertebral tenderness Extremity: normal range of motion, non-tender, normal inspection 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 10/12/19 21:49 Awaiting evaluation by [facility]. They are insistent upon his blood alcohol being below 80. I have expressed that this is not in the best interest of the patient as he is functional at a blood alcohol of greater than 200. Clinically right now patient is sober. I have given patient some more Ativan IM to help ease his withdrawals. He is willing to wait for further evaluation. 10/12/19 23:41 Patient's repeat alcohol was still elevated. It is obvious that the patient drank alcohol after he eloped earlier. We have contacted [facility] and they have agreed to evaluate the patient further once his blood alcohol is below 200 closer to the 150 range. I have explained this to the patient and he voices understanding willingness to stay for the time being. 10/13/19 06:02 Patient has been resting quietly. Patient still has suicidal ideation. Patient wanted to leave AMA a couple of hours ago but was convinced to stay. Are in the process of redrawn his blood alcohol level at the current time. Plan on further evaluation by [facility] once this blood alcohol level is returned. 10/13/19 06:43 Patient has been accepted by [facility] for respite care. Patient's is been called to come pick him up. She will take him directly to respite care and for detox and counseling. Patient voices understanding and agreement with the plan of care. Danny Alfred M.D. #[id number] - Results/Orders Results/Orders: Please see previous chart from earlier today for labs. Laboratory Results - last 24 hr 10/12/19 10/13/19 22:08 06:03 Ethyl Alcohol 324.20 H* 156.30 H* Departure - Departure Clinical Impression: Alcoholism, Suicidal ideation Depression Qualifiers: Depression Type: unspecified Qualified Code(s): F32.9 - Major depressive disorder, single episode, unspecified Alcohol withdrawal Qualifiers: Complication of substance-induced condition: uncomplicated Qualified Code(s): F10.230 - Alcohol dependence with withdrawal, uncomplicated Time of Disposition: 06:45 Disposition: Discharge to Rehab Facility Condition: Good Departure Forms: ED Discharge - Pt. Copy, Patient Portal Self Enrollment Instructions: DI for Psychosis, Depression, Adult (DC), Alcohol Abuse and Alcoholism (DC), Suicide Prevention Diet: resume usual diet Activity: increase activity as tolerated Referrals: RAYMUNDO JASSO [Primary Care Provider] - 1-2 Days Home Medications: Ambulatory Orders Lisinopril & Hydrochlorothiazi [Lisinopril/Hctz 10-12.5 mg] 1 tab PO DAILY #15 tab 11/06/18 Metoprolol Tartrate 25 mg PO BID #30 tab 11/06/18 Ciprofloxacin HCl [Cipro] 500 mg PO BID 10 Days #28 tab 07/30/19
[2019-10-13 09:49] VITALS: BP 132/89; TEMP 97.2; O2SAT 99
== END 2019-10-13 08:00 ==
LOC: ER 20:06
DX: R45.851 Suicidal ideations (principal); F32.9 Major depressive disorder, single episode, unspecified; F10.230 Alcohol dependence with withdrawal, uncomplicated; R07.9 Chest pain, unspecified; R05 Cough; R53.1 Weakness; J45.909 Unspecified asthma, uncomplicated; I10 Essential (primary) hypertension; Z86.19 Personal history of other infectious and parasitic diseases; Z86.73 Personal history of transient ischemic attack (TIA), and cerebral infarction without residual deficits; Z87.891 Personal history of nicotine dependence; Z79.899 Other long term (current) drug therapy; Z88.5 Allergy status to narcotic agent
CPT/HCPCS: 36415; 80320; J2060